=== PATIENT | male | born 1970 | race Caucasian/White ===

== ENCOUNTER 2016-12-31 12:34 | Observation (INO) | payer OTHER ==
[2016-12-31] MEDS ORDERED: FAMOTIDINE 20 MG/2 ML SDV IVP ONE (12:56)
[2016-12-31] MEDS ORDERED: HYOSCYAMINE SULFATE 0.125 MG TAB PO ONE (12:57)
[2016-12-31] MEDS ORDERED: LIDOCAINE 2% VISCOUS 15 ML UDCUP PO ONE (12:57)
[2016-12-31] MEDS ORDERED: MAG HYDROX/AL HYDROX/SIMETH 30 ML UDCUP PO ONE (12:57)
[2016-12-31 13:02] LABS: % IMMATURE GRANULYOCYTES 0.3 % (0.0-1.1); ABSOLUTE IMMATURE GRANULOCYTES 0.02 10^3/uL (0.00-0.10); ADD DIFF? NO; ADD MORPH? NO; ADD SCAN? NO; ATYPICAL LYMPHOCYTE FLAG 0 (0-99); FRAGMENT RBC FLAG 0 (0-99); HEMATOCRIT 42.1 % (40.0-51.0); HEMOGLOBIN 14.8 g/dL (13.7-17.5); LEFT SHIFT FLG 0 (0-99); LIPEMIA HEMOLYSIS FLAG 90 (0-99); MEAN CELL HEMOGLOBIN 30.5 pg (27.9-34.1); MEAN CELL HEMOGLOBIN CONCENTR. 35.2 g/dL (32.4-36.7); MEAN CELL VOLUME 86.8 fL (81.5-99.8); MEAN PLATELET VOLUME 8.8 fL (8.7-11.7); PLATELET CLUMPS FLAG 0 (0-99); PLATELET COUNT 142 10^3/uL (150-400); RED BLOOD CELL COUNT 4.85 10^6/uL (4.40-6.38); RED CELL DISTRIBUTION WIDTH 11.9 % (11.5-15.2)
--- NOTE | 2016-12-31 13:03 | CPEKG ---
Heart Rate: 104 RR Interval: 577 P-R Interval: 184 QRSD Interval: 114 QT Interval: 344 QTC Interval: 453 P [place]: 46 QRS [place]: 84 T Wave [place]: 40 EKG Severity - ABNORMAL ECG - EKG Impression: SINUS TACHYCARDIA EKG Impression: IRBBB AND LPFB Electronically Signed By: Geno Mike 31-Dec-2016 19:25:38
--- NOTE | 2016-12-31 13:18 | EDPHY ---
H & P Stated Complaint: Right sided chesty pain after shoulder surg today Source: Patient Exam Limitations: No limitations - Personal History Current Tetanus/Diphtheria Vaccine: Yes Current Tetanus Diphtheria and Acellular Pertussis (TDAP): Yes - Medical/Surgical History Hx Asthma: No Hx Chronic Respiratory Disease: No Hx Diabetes: No Hx Cardiac Disease: No Hx Renal Disease: No Hx Cirrhosis: No Hx Alcoholism: No Hx HIV/AIDS: No Hx Splenectomy or Spleen Trauma: No Other PMH: PMH: HTN. PSH: Right rotator cuff - Family History Significant Family History: Heart disease - Social History Smoking Status: Never smoked Alcohol Use: Occasionally Drug Use: None Time Seen by Provider: 12/31/16 13:00 HPI/ROS: HPI: 46-year-old male presents to emergency department with chief concern epigastric pain. He had right rotator cuff surgery this morning and afterwards had [place] crackers and juice during which time he developed a burning 4/10 epigastric pain that radiated into his mid chest. He denies fever, chills, myalgias, recent URI symptoms, shortness of breath, chest pain, nausea, vomiting. Past medical history notable for hypertension, right rotator cuff surgery, ACL surgery. Occasionally has heartburn at night over the past several years. Past family history includes coronary artery disease and CABG in his father and father's 3 siblings. Never smoker. Occasional alcohol. ROS:10 point review of systems is negative other than as stated in HPI (Sandee Crespo) - Social History Additional Social History: (Sandee Crespo) - Physical Exam Exam: Temp 36.8, heart rate 107, respiratory rate 20, blood pressure 146/96, 91% on room air. Recheck shows 95% on room air. General: Awake, alert, calm, cooperative. No acute distress. Head: Normalocephalic. Atraumatic. EENT: PERRLA. EOMI. No pallor or injection. Anicteric. No nystagmus. No injection. TMs intact bilaterally with normal landmarks. No rhinnorhea, nasal passages clear. Oropharynx without redness, exudates, or lesions. Tonsils 2+ bilaterally, no exudates. Neck: Supple, nontender. No lymphadenopathy. Full range of motion. No meningismus. Respiratory: Breathing unlabored. Breath sounds equal bilaterally and clear to auscultation. No adventitious sounds. CV: Chest nontender, atraumatic. Heart rate regular and tachycardic at 107. No murmur, distal pulses 2+ bilaterally. Brisk cap refill all extremities. GI: Abdomen soft, nontender. epigastric tenderness to deep palpation. Neuro: Alert. Oriented x 3. Speech clear. Nonfocal cranial nerves throughout. Sensation intact all extremities. Skin: Skin warm, dry, intact. No rashes, abrasions, or lacerations. Skin turgor normal. Extremities: Full range of motion in all 4 extremities. Strength 5+ all extremities. No calf pain or swelling. Negative Homans bilaterally. (Sandee Crespo) Constitutional: Initial Vital Signs Temperature (C) 36.8 C 12/31/16 12:46 Heart Rate 107 H 12/31/16 12:46 Respiratory Rate 20 12/31/16 12:46 Blood Pressure 146/96 H 12/31/16 12:46 O2 Sat (%) 91 L 12/31/16 12:46 O2 Delivery Mode Room Air O2 (L/minute) 2 Allergies/Adverse Reactions: No Known Allergies Allergy (Unverified 12/31/16 12:48) Home Medications: Medication Instructions Recorded Herbals/Supplements -Info Only 1 ea PO DAILY 12/31/16 Lisinopril [Zestril 20 mg (*)] 20 mg PO DAILY 12/31/16 Medical Decision Making ED Course/Re-evaluation: 1325: 46-year-old male with Hx of HTN and significant family history for CAD presents to ED after right rotator cuff shoulder surgery with epigastric discomfort that radiates into his chest. EKG emergency department shows a sinus tach with a right bundle branch block, left posterior fascicular block, no evidence of acute ischemia. At time of exam, patient's pain has resolved. Troponin negative. Due to the concerning family history and the setting of his hypertension and ongoing tachycardia, we will keep this patient for an obs admission and serial troponins. Had 324 mg aspirin prior to arrival to ED while at surgery center. (Sandee Crespo) Differential Diagnosis: Differential diagnosis includes but is not limited to dyspepsia/GERD, ACS (Sandee Crespo) - Data Points Laboratory Results: Laboratory Results 12/31/16 12:52 12/31/16 12:52 12/31/16 12/31/16 12:52 12:52 WBC 5.84 10^3/uL 10^3/uL (3.80-9.50) RBC 4.85 10^6/uL 10^6/uL (4.40-6.38) Hgb 14.8 g/dL g/dL (13.7-17.5) Hct 42.1 % % (40.0-51.0) MCV 86.8 fL fL (81.5-99.8) MCH 30.5 pg pg (27.9-34.1) MCHC 35.2 g/dL g/dL (32.4-36.7) RDW 11.9 % % (11.5-15.2) Plt Count 142 10^3/uL L 10^3/uL (150-400) MPV 8.8 fL fL (8.7-11.7) Neut % (Auto) 92.4 % H % (39.3-74.2) Lymph % (Auto) 5.3 % L % (15.0-45.0) [place] % (Auto) 1.5 % L % (4.5-13.0) Eos % (Auto) 0.2 % L % (0.6-7.6) Baso % (Auto) 0.3 % % (0.3-1.7) Nucleat RBC Rel Count 0.0 % % (0.0-0.2) Absolute Neuts (auto) 5.39 10^3/uL 10^3/uL (1.70-6.50) Absolute Lymphs (auto) 0.31 10^3/uL L 10^3/uL (1.00-3.00) Absolute Monos (auto) 0.09 10^3/uL L 10^3/uL (0.30-0.80) Absolute Eos (auto) 0.01 10^3/uL L 10^3/uL (0.03-0.40) Absolute Basos (auto) 0.02 10^3/uL 10^3/uL (0.02-0.10) Absolute Nucleated RBC 0.00 10^3/uL 10^3/uL (0-0.01) Immature Gran % 0.3 % % (0.0-1.1) Immature Gran # 0.02 10^3/uL 10^3/uL (0.00-0.10) Sodium 135 mEq/L mEq/L (134-144) Potassium 4.5 mEq/L mEq/L (3.5-5.2) Chloride 100 mEq/L mEq/L (97-110) Carbon Dioxide 24 mEq/l mEq/l (22-31) Anion Gap 11 mEq/L mEq/L (8-16) BUN 12 mg/dL mg/dL (7-23) Creatinine 0.8 mg/dL mg/dL (0.7-1.3) Estimated GFR > 60 Glucose 203 mg/dL H mg/dL (70-100) Calcium 9.0 mg/dL mg/dL (8.5-10.4) Troponin I 0.021 ng/mL ng/mL (0-0.034) Medications Given: Discontinued Medications Al Hydroxide/Mg Hydroxide (Maalox Susp) 30 ml PO ONCE ONE Stop: 12/31/16 12:58 Last Admin: 12/31/16 13:42 Dose: Not Given Aspirin (Aspirin) 325 mg PO ONCE ONE Stop: 12/31/16 15:20 Last Admin: 12/31/16 15:33 Dose: Not Given Famotidine (Pepcid) 20 mg IVP EDNOW ONE Stop: 12/31/16 12:57 Last Admin: 12/31/16 13:42 Dose: Not Given Hyoscyamine Sulfate (Levsin, Hyomax-Sl) 0.25 mg PO ONCE ONE Stop: 12/31/16 12:58 Last Admin: 12/31/16 13:43 Dose: Not Given Sodium Chloride (Ns) 1,000 mls @ 0 mls/hr IV ONCE ONE PRN Reason: Wide Open Stop: 12/31/16 13:43 Last Admin: 12/31/16 14:00 Dose: 1,000 mls Lidocaine (Lidocaine 2% Viscous) 15 ml PO ONCE ONE Stop: 12/31/16 12:58 Last Admin: 12/31/16 13:42 Dose: Not Given Departure - Departure Disposition: [facility] Inpatient Acute Clinical Impression: Epigastric pain, Chest pain Condition: Good
[2016-12-31 13:23] LABS: ANION GAP 11 mEq/L (8-16); CARBON DIOXIDE 24 mEq/l (22-31); CHLORIDE 100 mEq/L (97-110); CREATININE 0.8 mg/dL (0.7-1.3); GLOMERULAR FILTRATION RATE > 60; GLUCOSE 203 mg/dL (70-100); POTASSIUM 4.5 mEq/L (3.5-5.2); SODIUM 135 mEq/L (134-144)
[2016-12-31 13:34] LABS: TROPONIN I 0.021 ng/mL (0-0.034)
[2016-12-31] MEDS ORDERED: NS 1,000 ML IV ONE (13:42)
[2016-12-31] MEDS ORDERED: ASPIRIN 325 MG TAB PO ONE (15:19)
--- NOTE | 2016-12-31 16:26 | PDGENHP ---
History and Physical - Chief Complaint chest pain - History of Present Illness 46 y/o male POD 0 right rotator cuff repair with extensive family history of CAD presents to the ED with mild substernal burning that began shortly after surgery this morning at around 1030AM. The pain started after eating some zari crackers and mary louisa. The pain did not radiate and lasted fro about 30 minutes before going away. He also noted some chills and sweats. He was observed to be hypertensive and tachycardic as well. Currently he is chest pain free. History Information - Allergies/Home Medication List Allergies/Adverse Reactions: No Known Allergies Allergy (Unverified 12/31/16 12:48) Home Medications: Herbals/Supplements -Info Only 1 ea PO DAILY 12/31/16 [Last Taken Unknown] Lisinopril [Zestril 20 mg (*)] 20 mg PO DAILY 12/31/16 [Last Taken 12/30/16] I have personally reviewed and updated: family history, medical history, social history, surgical history - Past Medical History hypertension Additional medical history: jessica (mild) - Surgical History Additional surgical history: ACL repair. Rt shoulder rotator cuff repair my Dr. Ordonez 12/31/16 - Family History Positive for: CAD (father cabg age 62, cad in brother and sister as well) - Social History Smoking Status: Never smoked Alcohol Use: Occasionally Drug Use: None Review of Systems ROS: 10pt was reviewed & negative except for what was stated in HPI & below Physical Exam Temp Pulse Resp BP Pulse Ox 36.8 C 109 H 16 133/82 H 95 12/31/16 12:46 12/31/16 15:59 12/31/16 15:59 12/31/16 15:59 12/31/16 15:59 Constitutional: no apparent distress, appears nourished, not in pain Eyes: PERRL, anicteric sclera, EOMI Ears, Nose, Mouth, Throat: moist mucous membranes, hearing normal, ears appear normal, no oral mucosal ulcers Cardiovascular: no murmur, rub, or gallop, tachycardia, No edema Respiratory: no respiratory distress, no rales or rhonchi, clear to auscultation Gastrointestinal: normoactive bowel sounds, soft, non-tender abdomen, no palpable masses Genitourinary: no bladder fullness, no bladder tenderness Skin: warm, normal color, no rashes or abrasions, no fluctuance, no induration, No mottled Musculoskeletal: full muscle strength, no muscle tenderness, normal joint ROM, no joint effusions Neurologic: AAOx3, CN II-XII Intact, No facial droop Psychiatric: interacting appropriately, not anxious, not encephalopathic, thought process linear Lymph, Heme, Immunologic: no cervical LAD, no supraclavicular LAD Lab Data & Imaging Review 12/31/16 12:52 12/31/16 12:52 WBC 5.84 10^3/uL (3.80-9.50) 12/31/16 12:52 RBC 4.85 10^6/uL (4.40-6.38) 12/31/16 12:52 Hgb 14.8 g/dL (13.7-17.5) 12/31/16 12:52 Hct 42.1 % (40.0-51.0) 12/31/16 12:52 MCV 86.8 fL (81.5-99.8) 12/31/16 12:52 MCH 30.5 pg (27.9-34.1) 12/31/16 12:52 MCHC 35.2 g/dL (32.4-36.7) 12/31/16 12:52 RDW 11.9 % (11.5-15.2) 12/31/16 12:52 Plt Count 142 10^3/uL (150-400) L 12/31/16 12:52 MPV 8.8 fL (8.7-11.7) 12/31/16 12:52 Neut % (Auto) 92.4 % (39.3-74.2) H 12/31/16 12:52 Lymph % (Auto) 5.3 % (15.0-45.0) L 12/31/16 12:52 [place] % (Auto) 1.5 % (4.5-13.0) L 12/31/16 12:52 Eos % (Auto) 0.2 % (0.6-7.6) L 12/31/16 12:52 Baso % (Auto) 0.3 % (0.3-1.7) 12/31/16 12:52 Nucleat RBC Rel Count 0.0 % (0.0-0.2) 12/31/16 12:52 Absolute Neuts (auto) 5.39 10^3/uL (1.70-6.50) 12/31/16 12:52 Absolute Lymphs (auto) 0.31 10^3/uL (1.00-3.00) L 12/31/16 12:52 Absolute Monos (auto) 0.09 10^3/uL (0.30-0.80) L 12/31/16 12:52 Absolute Eos (auto) 0.01 10^3/uL (0.03-0.40) L 12/31/16 12:52 Absolute Basos (auto) 0.02 10^3/uL (0.02-0.10) 12/31/16 12:52 Absolute Nucleated RBC 0.00 10^3/uL (0-0.01) 12/31/16 12:52 Immature Gran % 0.3 % (0.0-1.1) 12/31/16 12:52 Immature Gran # 0.02 10^3/uL (0.00-0.10) 12/31/16 12:52 Sodium 135 mEq/L (134-144) 12/31/16 12:52 Potassium 4.5 mEq/L (3.5-5.2) 12/31/16 12:52 Chloride 100 mEq/L (97-110) 12/31/16 12:52 Carbon Dioxide 24 mEq/l (22-31) 12/31/16 12:52 Anion Gap 11 mEq/L (8-16) 12/31/16 12:52 BUN 12 mg/dL (7-23) 12/31/16 12:52 Creatinine 0.8 mg/dL (0.7-1.3) 12/31/16 12:52 Estimated GFR > 60 12/31/16 12:52 Glucose 203 mg/dL (70-100) H 12/31/16 12:52 Calcium 9.0 mg/dL (8.5-10.4) 12/31/16 12:52 Troponin I 0.021 ng/mL (0-0.034) 12/31/16 12:52 Visualized and Interpreted EKG results: Yes EKG Interpretation: Positive for: other (iRBBB/LPFB). Negative for: normal sinsus rhythm (tachy 104 bpm) Assessment & Plan Assessment: 46 y/o male with extensive family history of CAD presents post op day #0 right rotator cuff repair by Dr. Ordonez presenting with #Chest pain likely atypical -cycle troponin and repeat ekg -arrange for lexiscan due to decreased mobility in the setting of recent shoulder surgery #hyperglycemia -will need further screening for DM #hypertension -cont home meds
[2016-12-31] MEDS ORDERED: ACETAMINOPHEN 325 MG TAB PO PRN (16:32)
--- NOTE | 2016-12-31 17:03 | CPEKG ---
Heart Rate: 103 RR Interval: 583 P-R Interval: 200 QRSD Interval: 108 QT Interval: 336 QTC Interval: 440 P [place]: 44 QRS [place]: 49 T Wave [place]: 40 EKG Severity - ABNORMAL ECG - EKG Impression: SINUS TACHYCARDIA EKG Impression: INCOMPLETE RIGHT BUNDLE BRANCH BLOCK Electronically Signed By: Grant Abernathy 01-Jan-2017 16:24:27
[2016-12-31] MEDS ORDERED: oxyCODONE IR 5 MG TAB PO PRN (19:59)
[2016-12-31] MEDS: NAPROXEN SODIUM 220 MG TAB PO SCH (21:06)
[2016-12-31] MEDS: oxyCODONE IR 5 MG TAB PO PRN (21:32)
[2017-01-01] MEDS: oxyCODONE IR 5 MG TAB PO PRN ×4 (02:05→14:13)
[2017-01-01] MEDS ORDERED: Herbals/Supplements -Info Only PO SCH (09:00)
[2017-01-01] MEDS ORDERED: LISINOPRIL 20 MG TAB PO SCH (09:00)
[2017-01-01] MEDS ORDERED: ASPIRIN 325 MG TAB PO SCH (09:00)
[2017-01-01] MEDS: NAPROXEN SODIUM 220 MG TAB PO SCH (10:53)
[2017-01-01] MEDS ORDERED: REGADENOSON 0.4 MG/5 ML SYR IVP ONE (11:33)
--- NOTE | 2017-01-01 12:34 | PDCARST ---
CAR Stress Test Results Type of Stress Test: Lexiscan stress test Indication: cp Description of Procedure: After informed consent was obtained, pt was established to ECG, blood pressure, HR and oximetry monitoring. STRESS EKG AND HEMODYNAMIC DATA. Resting heart rate: 80 BPM. Resting ECG: SR with iRBBB. Resting blood pressure: 130/90 mmHg. O2 saturation at rest: 95%. Peak heart rate: 114 BPM. Peak blood pressure: 140/88 mmHg. Arrhythmias: none. Symptoms: The patient experienced no typical symptoms of angina during stress or recovery. . Stress/Infusion ECG: No change in rhythm with no significant ST/ T wave changes. Stress/infusion O2 saturation: 98% Impression: Uneventful Lexiscan infusion. Conclusion: Await nuclear images.
[2017-01-01 12:52] VITALS: RESP 18
[2017-01-01 14:11] VITALS: BP 135/95; PULSE 82; TEMP 97.5; O2SAT 97
--- NOTE | 2017-01-01 15:40 | GDS ---
[f rep st] DISCHARGE SUMMARY DISCHARGE DIAGNOSIS: 1. Atypical chest pain. 2. Extensive family history of early coronary artery disease. 3. Poorly controlled hypertension. 4. Postoperative day 1, right rotator cuff repair. HOSPITAL COURSE BY PROBLEM: 1. Atypical chest pain: Today the patient presented to the emergency department after reporting ch est pain shortly after having shoulder surgery. Given the patient's extensive family history for co ronary artery disease he was placed on observation, we recycled his troponin, that were negative. S ubsequently, the patient had a myocardial perfusion scan that was negative for ischemia. On date of discharge he is chest pain free. 2. Poorly controlled hypertension: Patient's blood pressure ranged from 158 to 132 systolic, and 9 5 to 104 diastolic throughout his stay. He does take lisinopril 20 mg daily. On discharge he was g iven a prescription for hydrochlorothiazide 12.5 mg to add, if his systolic blood pressure continues to be greater than 140 or diastolic greater than 90. He plans to follow up with his primary care cristiana abrams to also discuss possibly changing off KENNEDI inhibitor since he has been having a cough. PHYSICAL EXAM: VITAL SIGNS: On date of discharge blood pressure 135/95, pulse of 82, respiratory r ate 18, O2 saturation 97% on room air, temperature afebrile. GENERAL: In no acute distress. HEART : S1 and S2. LUNGS: Clear. ABDOMEN: Soft. EXTREMITIES: No edema. LABORATORY DATA: Pertinent labs and studies done on this hospital stay, myocardial perfusion scan o n 01/01/2017 was negative for ischemia. DISCHARGE MEDICATIONS: Please refer to discharge medication reconciliation in [facility] for details. Below is a preliminary list. New medications on hospital discharge are hydrochlorothiazide 12.5 mg p.o. daily. All other home me dications were continued as usual home dosages. DISCHARGE INSTRUCTIONS: The patient will be discharged from the hospital, where he should follow up with his primary care provider. Upon further review of the notes I forgot to mention that his glucose on initial presentation to the emergency department was elevated at 203. He should be further screen for diabetes on an outpatien t basis. /[id number]/MODL
== END 2017-01-01 15:31 | disposition home or self-care (01) ==
LOC: EDUNIT# → F1N 16:01
PROVIDERS: ADMIT Internal Medicine Pulmonary Disease; ATTEND Internal Medicine Pulmonary Disease
DX: R07.89 Other chest pain (principal); R10.13 Epigastric pain; Z82.49 Family history of ischemic heart disease and other diseases of the circulatory system; I10 Essential (primary) hypertension; M75.101 Unspecified rotator cuff tear or rupture of right shoulder, not specified as traumatic; Z98.890 Other specified postprocedural states
CPT/HCPCS: 78452; 93005; 93017; A9500; G0378; J2785